=== PATIENT | male | born 1990 | race Caucasian/White ===

== ENCOUNTER 2019-01-17 08:37 | Emergency (ER) | payer OTHER, SELFPAY ==
[2019-01-17 08:46] VITALS: BP 129/79; PULSE 83; RESP 16; TEMP 36.9; O2SAT 98; BMI 30.1
--- NOTE | 2019-01-17 09:00 | HMH.EDGENADL ---
ED Disposition Clinical Impression: Scalp cyst Disposition: Home, Self-Care Condition on Discharge: Good Prescriptions: Doxycycline Hyclate [Doxycycline 100mg Capsule] 100 mg PO Q12 7 Days #14 cap Referrals: Debbie Read PA [Primary Care Provider] - Time of Disposition: 09:33 - Critical Care Critical Care Time: No Attestation: On , the high probability of a clinically significant, sudden or life threatening deterioration of the following system(s) required my full and direct attention, intervention and personal management. The time I documented below is in addition to time spent performing reported procedures but includes the following listed in this critical care notation. Medical Decision Making - Medical Records Medical records reviewed: Yes: I reviewed the patient's medical records. - Manuel Inquiry Pt receiving controlled substance: No Manuel was queried for this patient: No Vital Signs: 01/17/19 08:46 01/17/19 09:10 Temperature 98.4 F Temperature Source Oral Pulse Rate [Left Radial] 83 91 H Respiratory Rate 16 18 Blood Pressure [Right Arm] 129/79 120/76 Blood Pressure Mean [Right Arm] 95 90 Blood Pressure Source [Right Arm] Automatic Cuff Automatic Cuff Blood Pressure Position [Right Arm] Sitting Sitting 02 Sat by Pulse Oximetry 98 95 Oxygen Delivery Method Room Air Room Air - Lab Data Lab results reviewed: Yes: I reviewed the patient's lab results. Orders (Tests/Meds): ORDERS Category Date Time Status CT abdomen pelvis wo con Stat Cat Scan 01/17/19 09:12 Stop Req General Adult HPI - General Chief complaint: Wound/Laceration Stated complaint: woke up with lump back of head Time Seen by Provider: 01/17/19 09:09 Mode of Arrival: Ambulatory Source of Information: Patient Limitations: No Limitations Description of Symptoms (Recalled from ER Triage Doc. by RN): to ed per pvt car states woke up with lump on posterior scalp denies any nause, vomiting, fever. cpta none - Related Data Previous Rx's Medication Instructions Recorded Doxycycline Hyclate [Doxycycline 100 mg PO Q12 7 Days #14 cap 01/17/19 100mg Capsule] Allergies Allergy/AdvReac Type Severity Reaction Status Date / Time No Known Allergies Allergy Verified 04/26/18 15:[address] [facility] History - Hepatitis A Screen Drug use history?: No High risk sexual behaviors?: No History of sexually transmitted infection?: No Currently employed?: No Childcare worker?: No Do you have indoor plumbing?: Yes Do you have electricity?: Yes Attestation statement:: This patient has been screened for Hepatitis A risk factors. I have reviewed the patient's past medical history: Yes Medical History: Denies:: Diabetes Mellitus Type 1, Diabetes Mellitus Type 2, Hypertension Comment: none Laterality Cases: Bilateral: Other Other Surgeries: Yes: No Previous Surgery, Other Comment: missy arm plates and screws - Social History Smoking Status: Current every day smoker Tobacco Type: cigarettes # Packs/Day (cigarettes): 1 Alcohol Intake: current Alcohol Intake Frequency:: a few times a week Substance Use Type: denies use Occupational Status: other - Psychiatric History Expresses thoughts of harming self/others: None Suicide Plan Description: No Plan Family Hx:: Cancer ROS Obtained: Yes All systems reviewed & no additional complaints - Eyes Eyes: Denies blurry vision - Cardiovascular Cardiovascular: Denies chest pain at rest, Denies diaphoresis - Respiratory Respiratory: No chest congestion, No cough, No dyspnea on exertion - Genitourinary Female Genitourinary: Denies urinary incontinence - Musculoskeletal Musculoskeletal: Reports neck pain - Integumentary/Breasts Skin/Breast: Denies rash, Reports skin pain, Reports other (scalp tenderness) - Neurologic Neurologic: Denies confusion, Denies headache(s), Denies numbness, Denies tingling, Denies tremor(s) - Hematologic/Lymphatic Henatologic/Lym
--- NOTE | 2019-01-17 09:09 | ED_ITS ---
ED Disposition Clinical Impression: Scalp cyst Disposition: Home, Self-Care Condition on Discharge: Good Prescriptions: Doxycycline Hyclate [Doxycycline 100mg Capsule] 100 mg PO Q12 7 Days #14 cap Referrals: Debbie Read PA [Primary Care Provider] - Time of Disposition: 09:33 - Critical Care Critical Care Time: No Attestation: On , the high probability of a clinically significant, sudden or life threatening deterioration of the following system(s) required my full and direct attention, intervention and personal management. The time I documented below is in addition to time spent performing reported procedures but includes the following listed in this critical care notation. Medical Decision Making - Medical Records Medical records reviewed: Yes: I reviewed the patient's medical records. - Manuel Inquiry Pt receiving controlled substance: No Manuel was queried for this patient: No Vital Signs: 01/17/19 08:46 01/17/19 09:10 Temperature 98.4 F Temperature Source Oral Pulse Rate [Left Radial] 83 91 H Respiratory Rate 16 18 Blood Pressure [Right Arm] 129/79 120/76 Blood Pressure Mean [Right Arm] 95 90 Blood Pressure Source [Right Arm] Automatic Cuff Automatic Cuff Blood Pressure Position [Right Arm] Sitting Sitting 02 Sat by Pulse Oximetry 98 95 Oxygen Delivery Method Room Air Room Air - Lab Data Lab results reviewed: Yes: I reviewed the patient's lab results. Orders (Tests/Meds): ORDERS Category Date Time Status CT abdomen pelvis wo con Stat Cat Scan 01/17/19 09:12 Stop Req General Adult HPI - General Chief complaint: Wound/Laceration Stated complaint: woke up with lump back of head Time Seen by Provider: 01/17/19 09:09 Mode of Arrival: Ambulatory Source of Information: Patient Limitations: No Limitations Description of Symptoms (Recalled from ER Triage Doc. by RN): to ed per pvt car states woke up with lump on posterior scalp denies any nause, vomiting, fever. cpta none - Related Data Previous Rx's Medication Instructions Recorded Doxycycline Hyclate [Doxycycline 100 mg PO Q12 7 Days #14 cap 01/17/19 100mg Capsule] Allergies Allergy/AdvReac Type Severity Reaction Status Date / Time No Known Allergies Allergy Verified 04/26/18 15:32 [facility] History - Hepatitis A Screen Drug use history?: No High risk sexual behaviors?: No History of sexually transmitted infection?: No Currently employed?: No Childcare worker?: No Do you have indoor plumbing?: Yes Do you have electricity?: Yes Attestation statement:: This patient has been screened for Hepatitis A risk factors. I have reviewed the patient's past medical history: Yes Medical History: Denies:: Diabetes Mellitus Type 1, Diabetes Mellitus Type 2, Hypertension Comment: none Laterality Cases: Bilateral: Other Other Surgeries: Yes: No Previous Surgery, Other Comment: missy arm plates and screws - Social History Smoking Status: Current every day smoker Tobacco Type: cigarettes # Packs/Day (cigarettes): 1 Alcohol Intake: current Alcohol Intake Frequency:: a few times a week Substance Use Type: denies use Occupational Status: other
[2019-01-17 09:10] VITALS: BP 120/76; PULSE 91; RESP 18; O2SAT 95
[2019-01-17 09:44] VITALS: BP 124/68; PULSE 69; RESP 20; TEMP 36.7; O2SAT 98
== END 2019-01-17 09:47 | disposition home or self-care (01) ==
PROVIDERS: Emergency Provider Emergency Medicine; PCP Physician Assistant
DX: L72.9 Follicular cyst of the skin and subcutaneous tissue, unspecified (principal); F17.210 Nicotine dependence, cigarettes, uncomplicated
CPT/HCPCS: 99282

== ENCOUNTER 2020-08-23 14:37 | Emergency (ER) | payer OTHER, SELFPAY ==
[2020-08-23 14:45] VITALS: BP 133/78; PULSE 100; RESP 18; TEMP 37.6; O2SAT 98; BMI 29.0
--- NOTE | 2020-08-23 15:04 | HMH.EDUTC ---
[facility] [place] Disposition Clinical Impression: Viral syndrome, Exposure to COVID-19 virus Disposition: Home, Self-Care Condition on Discharge: Good Instructions: Preventing the Spread of Coronavirus Discharge Instructions Additional Instructions: Drink plenty of fluids. Take tylenol for pain or fever. Return if you begin to have difficulty breathing. Follow up with your regular doctor. GO TO THE ER FOR ANY WORSENING SYMPTOMS Referrals: Debbie Read PA [Primary Care Provider] - Time of Disposition: 15:15 Medical Decision Making - Medical Records Medical records reviewed: No: I reviewed the patient's medical records. - Manuel Inquiry Pt receiving controlled substance: No Vital Signs: 08/23/20 14:45 08/23/20 15:18 Temperature 99.6 F 99.6 F Temperature Source Oral Pulse Rate 100 H Pulse Rate [Right Brachial] 100 H Respiratory Rate 18 18 Blood Pressure 133/78 Blood Pressure [Right Arm] 133/78 Blood Pressure Mean [Right Arm] 96 Blood Pressure Source [Right Arm] Automatic Cuff Blood Pressure Position [Right Arm] Sitting 02 Sat by Pulse Oximetry 98 Oxygen Delivery Method Room Air Orders (Tests/Meds): ORDERS Category Date Time Status Covid-19 Nasal PCR Sendout Cam Routine Lab 08/23/20 14:45 Received [facility] [place] HPI - General Stated complaint: covid test Time Seen by Provider: 08/23/20 15:07 Mode of Arrival: Ambulatory Source of Information: Patient Limitations: No Limitations Description of Symptoms (Recalled from Triage Doc. by RN): PATIENT C/O COUGH, CHILLS, HEADACHE, DECREASED APPETITE, BODY ACHES, AND WEAKNESS SINCE LAST MONDAY. REQUESTING COVID TEST HEENT Symptoms (Recalled from RN notes): No Resp Symptoms (Recalled from RN notes): Yes Skin Symptoms (Recalled from RN notes): No MS Symptoms (Recalled from RN notes): Yes Functional Status (Recalled from RN notes): WNL - History of Present Illness Provider Complaint: He states that for the past week he has felt bad, had a cough and had body aches. He states that he is feeing better now, but his boss wants him tested for covid. - Related Data Home Medications Medication Instructions Recorded Confirmed No Known Home Medications 03/30/19 03/30/19 Allergies Allergy/AdvReac Type Severity Reaction Status Date / Time No Known Allergies Allergy Verified 03/30/19 22:00 - Worker's Comp Is this a Worker's Comp case?: No [facility] History - Hepatitis A Screen Drug use history?: No High risk sexual behaviors?: No History of sexually transmitted infection?: No Currently employed?: No Childcare worker?: No Do you have indoor plumbing?: Yes Do you have electricity?: Yes Attestation statement:: This patient has been screened for Hepatitis A risk factors. I have reviewed the patient's past medical history: Yes Medical History: Denies:: Diabetes Mellitus Type 1, Diabetes Mellitus Type 2, Hypertension Comment: none Laterality Cases: Bilateral: Other Other Surgeries: Yes: No Previous Surgery, Other Comment: missy arm plates and screws - Social History Smoking Status: Light tobacco smoker Tobacco Type: cigarettes # Packs/Day (cigarettes): 1 Alcohol Intake: never Alcohol Intake Frequency:: a few times a week Substance Use Type: denies use Occupational Status: other Housing: house Family Hx:: Cancer ROS Obtained: Yes All systems reviewed & no additional complaints - Constitutional Constitutional: Reports system reviewed and no additional complaints, except as docu - Eyes Eyes: Reports system reviewed and no additional complaints, except as docu - ENT Ears, Nose, Mouth, and Throat: Reports system reviewed and no additional complaints, except as docu - Cardiovascular Cardiovascular: Reports system reviewed and no additional complaints, except as docu - Respiratory Respiratory: Yes system reviewed and no additional complaints, except as docu - Gastrointestinal Gastrointestingal: Reports: system reviewe
[2020-08-23 15:18] VITALS: BP 133/78; PULSE 100; RESP 18; TEMP 37.6; O2SAT 98
[2020-08-25 13:22] LABS: Covid-19 Nasal PCR Sendout Lex Positive
--- NOTE | 2020-08-25 14:07 | PC.NURSE ---
ATTEMPTED TO REACH PT ABOUT POSITIVE COVID RESULT AND WHEN I CALLED IT SAID IS WASN'T A WORKING NUMBER
== END 2020-08-23 15:20 | disposition home or self-care (01) ==
PROVIDERS: Emergency Provider Nurse Practitioner Family; PCP Physician Assistant
DX: U07.1 COVID-19 (principal); F17.210 Nicotine dependence, cigarettes, uncomplicated
CPT/HCPCS: 99201; U0004

== ENCOUNTER → 2021-04-09 01:15 | Outpatient (CLI) | payer OTHER, SELFPAY | PROVIDERS: PCP Internal Medicine; Visit Provider Internal Medicine | DX: Z02.89 Encounter for other administrative examinations (principal) ==

== ENCOUNTER 2021-04-09 01:38 | Emergency (ER) | payer OTHER, SELFPAY ==
[2021-04-09 01:39] VITALS: BP 136/89; PULSE 92; RESP 18; TEMP 36.5; O2SAT 100; BMI 29.8
--- NOTE | 2021-04-09 02:08 | HMH.EDMCLR ---
ED Disposition Clinical Impression: Medical clearance for incarceration Disposition: Home, Self-Care Condition on Discharge: Good Instructions: DI for Alcohol Use Disorder Additional Instructions: see pcp for follow up Referrals: Ry Feliciano [Primary Care Provider] - - Critical Care Critical Care Time: No Attestation: On 04/09/21, the high probability of a clinically significant, sudden or life threatening deterioration of the following system(s) required my full and direct attention, intervention and personal management. The time I documented below is in addition to time spent performing reported procedures but includes the following listed in this critical care notation. Medical Decision Making - Medical Records Medical records reviewed: Yes: I reviewed the patient's medical records. - Manuel Inquiry Pt receiving controlled substance: No Vital Signs: 04/09/21 01:39 Temperature 97.7 F Temperature Source Oral Pulse Rate [Left Radial] 92 H Respiratory Rate 18 Blood Pressure [Right Arm] 136/89 Blood Pressure Mean [Right Arm] 104 Blood Pressure Source [Right Arm] Automatic Cuff Blood Pressure Position [Right Arm] Sitting 02 Sat by Pulse Oximetry 100 Oxygen Delivery Method Room Air Medical Clearance HPI - General Chief complaint: Medical Clearance Stated complaint: Medical Clearance Time Seen by Provider: 04/09/21 02:00 Mode of Arrival: Ambulatory Source of Information: Patient, Medical Record Limitations: No Limitations Description of Symptoms (Recalled from ER Triage Doc. by RN): medical clearance for alcohol and weed. Pt denies any issues at this time. - History of Present Illness HPI Narrative: no specific c/o MD complaint: medical clearance requested Traumatic Symptoms: denies traumatic injury Associated Symptoms: denies other symptoms Treatments Prior to Arrival: none Home medications: Home Medications Medication Instructions Recorded Confirmed No Known Home Medications 03/30/19 03/30/19 Allergies/Adverse reactions: Allergies Allergy/AdvReac Type Severity Reaction Status Date / Time No Known Allergies Allergy Verified 03/30/19 22:00 [facility] History - Hepatitis A Screen Drug use history?: No High risk sexual behaviors?: No History of sexually transmitted infection?: No Currently employed?: No Childcare worker?: No Do you have indoor plumbing?: Yes Do you have electricity?: Yes Attestation statement:: This patient has been screened for Hepatitis A risk factors. I have reviewed the patient's past medical history: Yes Medical History: Denies:: Diabetes Mellitus Type 1, Diabetes Mellitus Type 2, Hypertension Comment: none Laterality Cases: Bilateral: Other Other Surgeries: Yes: No Previous Surgery, Other Comment: missy arm plates and screws - Social History Smoking Status: Light tobacco smoker Tobacco Type: cigarettes # Packs/Day (cigarettes): 1 Alcohol Intake: never Alcohol Intake Frequency:: a few times a week Substance Use Type: denies use Occupational Status: other Housing: house Family Hx:: Cancer ROS Obtained: Yes All systems reviewed & no additional complaints - Constitutional Constitutional: Denies fever(s) - Eyes Eyes: Denies change in vision - ENT Ears, Nose, Mouth, and Throat: Denies facial pain - Cardiovascular Cardiovascular: Denies chest pain - Respiratory Respiratory: Denies cough - Gastrointestinal Gastrointestingal: Denies: abdominal pain - Genitourinary Male Genitourinary: Denies flank pain Female Genitourinary: Denies hematuria - Musculoskeletal Musculoskeletal: Denies joint pain - Integumentary/Breasts Skin/Breast: Denies rash - Neurologic Neurologic: Denies headache(s), Denies seizure-like activity Physical Exam - General General appearance: alert - Head Head exam: normocephalic - Eye Eye exam: Present: PERRL, EOMI - ENT ENT exam: Present: mucous membranes moist - Neck Neck exam: Presen
[2021-04-09 02:48] VITALS: BP 124/79; PULSE 89; RESP 18; TEMP 36.5; O2SAT 99
== END 2021-04-09 02:49 | disposition home or self-care (01) ==
PROVIDERS: Emergency Provider Emergency Medicine; PCP Internal Medicine
DX: Z00.8 Encounter for other general examination (principal); F10.10 Alcohol abuse, uncomplicated; F12.10 Cannabis abuse, uncomplicated; F17.210 Nicotine dependence, cigarettes, uncomplicated
CPT/HCPCS: 99281; 99282